=== PATIENT | female | born 1985 | race Caucasian/White ===

== ENCOUNTER 2016-11-04 11:53 | Emergency (ER) | payer MEDICAID ==
[~2016-11-04] VITALS: Ht 154.9 cm; Wt 52.0 kg
[~2016-11-04 11:53] MED LIST: FOLI-49 PO; PRENAT PO
[2016-11-04 12:01] VITALS: Ht 154.9 cm; Wt 52.0 kg
[2016-11-04] MEDS ORDERED: IBUP800T25 PO (13:16)
[2016-11-04] MEDS ORDERED: DIAZ-90 PO (13:16)
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
== END 2016-11-04 14:31 | disposition home or self-care (01) ==
LOC: FTE 11:53
DX: S13.4XXA Sprain of ligaments of cervical spine, initial encounter (principal); S29.019A Strain of muscle and tendon of unspecified wall of thorax, initial encounter; S39.012A Strain of muscle, fascia and tendon of lower back, initial encounter; V49.50XA Passenger injured in collision with unspecified motor vehicles in traffic accident, initial encounter
CPT/HCPCS: 99283